=== PATIENT | female | born 1965 | race American Indian/Alaskan Native ===

== ENCOUNTER 2017-03-30 07:53 | Outpatient (CLI) | payer MEDICARE ==
--- NOTE | 2017-03-30 09:42 | Ultrasound Report ---
ULTRASOUND RENAL BILATERAL INDICATION: Chronic kidney disease, stage 3. COMPARISON: 03/01/2017. FINDINGS: Renal sonography again demonstrates mild increased renal cortical echogenicity. Grossly preserved contours. No hydronephrosis. RIGHT KIDNEY is 10 x 5.3 x 5.8 cm with cortical thickness of 2.2 cm. The larger interpolar 4 x 3.5 cm cyst is stable, image 18. Other smaller 2.5 x 1.9 cm cortical cyst superiorly, images 13-15 demonstrates a more prominent 1.1 x 0.9 cm intrinsic non-shadowing echogenicity, possibly fat or hemorrhage in the given setting. LEFT KIDNEY measures 8.9 x 5.1 x 5.4 cm with cortical thickness of 1.8 cm. Two adjacent interpolar cortical cysts laterally again seen on images 32-34, the larger 3.5 x 2.5 cm while the smaller is 2.2 x 1.7 cm. URINARY BLADDER suboptimally distended and assessed, though grossly unremarkable, in so far seen. CONCLUSION: Mild underlying medical renal disease and bilateral renal cysts again noted with slight interval sonographic variation in the right upper renal cortical cyst, as described. Thank you for the opportunity to participate in this patient's care.
== END 2017-03-30 07:54 | disposition home or self-care (01) ==
LOC: US 07:53
PROVIDERS: ATTEND Internal Medicine Nephrology
DX: I12.9 Hypertensive chronic kidney disease with stage 1 through stage 4 chronic kidney disease, or unspecified chronic kidney disease (principal); N18.3 Chronic kidney disease, stage 3 (moderate); N28.1 Cyst of kidney, acquired; N32.89 Other specified disorders of bladder
CPT/HCPCS: 76770

== ENCOUNTER 2017-04-09 09:06 | Emergency (ER) | payer MEDICARE ==
--- NOTE | 2017-04-09 10:14 | XRay Report ---
Single view chest: Compared to 02/28/17. History: Trauma/chest pain. Findings: Cardiomegaly. Trachea is midline. Stable [id number]. No consolidation or pleural effusion. Impression: No acute cardiopulmonary findings.
--- NOTE | 2017-04-09 10:18 | Cat Scan Report ---
CT HEAD WITHOUT CONTRAST INDICATION: Fall with left-sided weakness. COMPARISON: February 2017 neuroimaging. FINDINGS: Noncontrast head CT demonstrates stable, age-appropriate ventricles and sulci, including slight ex-vacuo dilatation of the left frontal horn secondary to approximately 1.8 cm left frontal lobe old infarct/encephalomalacia, axial image 41, series 2. Mild to moderate periventricular and white matter hypodense small vessel ischemic disease again noted as also few small scattered lacunar infarcts as in the basal ganglia. No acute infarct, hemorrhage, mass effect or midline shift. No abnormal extra axial fluid collections. Stable posterior fossa with preserved basilar cisterns. Approximately 2 cm peripheral left cerebellar hypodense, late subacute/chronic infarct now noted with stable 6 mm calcification superiorly, axial images 20-26. Normal eye globes. Clear imaged paranasal sinuses and mastoid air cells. Atherosclerotic ICA calcifications. Slight hyperostosis frontalis. Normal scalp. Few radiopaque dental material. CONCLUSION: 1. Expected interval evolution of now hypodense peripheral left cerebellar infarct, as detailed above. 2. No acute intracranial CT abnormality with stable age appropriate atrophy and microvascular changes/old infarctions, as described. If focal neurologic deficits or strong clinical suspicion for an acute infarction exist, additional assessment as with MRI may be considered, as appropriate. Thank you for the opportunity to participate in this patient's care.
--- NOTE | 2017-04-09 10:35 | Cat Scan Report ---
CT CERVICAL SPINE WITHOUT CONTRAST INDICATION: Trauma. COMPARISON: None similar. FINDINGS: Noncontrast axial, sagittal and coronal CT reconstructions through the cervical spine somewhat limited due to patient positioning/tilt, though demonstrates intact craniocervical articulation with normal dens, anterior and posterior arches of C1 and prevertebral soft tissues. Patent airway. No evidence of a jumped facet. Assessment of the spinal canal itself compromised from C5-C6 inferiorly due to artifact from shoulder soft tissues. Radiopaque dental materials create streak artifact. Normal imaged mastoid air cells and posterior fossa. Normal vertebral body stature, alignment and disc heights. Slight C6-C7 degenerative spurring. No large disc protrusion suspected at any level. Slight lower cervical facet arthropathy. Grossly normal thyroid. Left-sided dual lumen central catheter partially imaged. Clear visualized lung apices. CONCLUSION: No acute cervical spine CT abnormality on this limited exam with few incidental findings, as above. Thank you for the opportunity to participate in this patient's care.
[2017-04-09 10:39] LABS: Basophils % (Auto) 0.2 % (0.0-1.8); Eosinophils % (Auto) 1.5 % (0.0-4.3); Hematocrit 23.9 % (30.3-42.9); Hemoglobin 8.2 gm/dl (10.1-14.3); Mean Corpuscular HGB Conc 35 % (30-34); Mean Corpuscular Hemoglobin 35 pg (28-32); Mean Corpuscular Volume 101 fl (79-97); Platelet Count 479 K/mm3 (140-440); Red Blood Count 2.37 M/mm3 (3.65-5.03); White Blood Count 10.7 K/mm3 (4.5-11.0)
[2017-04-09 10:41] LABS: Red Cell Distribution Width 23.5 % (13.2-15.2)
[2017-04-09 10:49] LABS: INR 1.02 (0.87-1.13)
[2017-04-09 10:50] LABS: Partial Thromboplastin Time 34.5 Sec. (24.2-36.6)
[2017-04-09 11:00] LABS: Alanine Aminotransferase 6 units/L (7-56); Albumin 3.7 g/dL (3.9-5); Albumin/Globulin Ratio 0.8 %; Alkaline Phosphatase 68 units/L (35-129); Anion Gap 17 mmol/L; BUN/Creatinine Ratio 10; Blood Urea Nitrogen 9 mg/dL (7-17); Calcium 8.8 mg/dL (8.4-10.2); Carbon Dioxide 23 mmol/L (22-30); Chloride 105.3 mmol/L (98-107); Creatine Kinase 81 units/L (30-135); Glucose 93 mg/dL (65-100); Potassium 4.1 mmol/L (3.6-5.0); Sodium 141 mmol/L (137-145); Total Protein 8.2 g/dL (6.3-8.2)
--- NOTE | 2017-04-09 11:25 | XRay Report ---
Single view pelvis: History: Trauma. Pelvic pain. Findings: No lytic or blastic lesion. No fracture or dislocation. Impression: No evidence of acute fracture
[2017-04-09 11:32] LABS: Urine Drugs of Abuse Note Disclamer
[2017-04-09 11:48] LABS: Bilirubin,Urine NEG (Negative); Blood,Urine SM (Negative); Ketones,Urine NEG (Negative); Leukocyte Esterase,Urine NEG (Negative); Nitrite,Urine NEG (Negative); Urobilinogen,Urine < 2.0 mg/dL (<2.0)
--- NOTE | 2017-04-09 11:56 | Emergency Department Report ---
ED Fall HPI - General Chief Complaint: Altered Mental Status Stated Complaint: POSS CVA Time Seen by Provider: 04/09/17 09:19 Source: patient Mode of arrival: Stretcher Limitations: No Limitations - History of Present Illness Initial Comments: 51-year-old female with a past medical history CVA with visual left-sided weakness, hypertension, sickle cell disease, and renal insufficiency presents to the hospital status post fall. Family heard patient fall and was found at the bottom of the stairs. Patient states she ambulates with a walker at her baseline. She does not recall the fall incident. She denies any pain currently. She states she took her medications this morning. She is alert and oriented 3 and able to speak although not fluently. Previous medical records were reviewed. Patient was just admitted here March 03 acute CVA. Brain MRI showed subacute ischemia at 3 different areas as well as chronic infarcts. Patient also had worsening renal sufficiency that resolved prior to discharge. See previous medical record. Initially is reported that patient was nonverbal throughout EMS care and initially upon arrival to the ED. Patient was placed in C-spine precautions prior to arrival. - Related Data Home Medications Medication Instructions Recorded Confirmed Last Taken Coreg 12.5 mg PO DAILY 03/01/17 03/01/17 02/27/17 Hydroxyurea 1 PO DAILY 03/01/17 Unknown Lisinopril 40 mg PO DAILY 03/01/17 03/01/17 02/27/17 oxyCODONE ER [OxyCONTIN ER TAB] 40 mg PO Q12HR 03/01/17 03/01/17 Unknown oxyCODONE [Roxicodone TAB] 10 mg PO Q6HR PRN 03/01/17 03/01/17 Unknown Previous Rx's Medication Instructions Recorded Last Taken Type Aspirin 81 mg PO Q24H #30 tab.chew 03/04/17 Unknown Rx AtorvaSTATin [Lipitor] 40 mg PO QHS #30 tab 03/04/17 Unknown Rx Levofloxacin [Levaquin TAB] 250 mg PO Q48HR #5 tablet 03/04/17 Unknown Rx Allergies Allergy/AdvReac Type Severity Reaction Status Date / Time hydromorphone HCl Allergy Unknown Verified 02/28/17 14:46 [From Dilaudid] Penicillins Allergy Unknown Verified 02/28/17 14:46 ED Review of Systems ROS: Stated complaint: POSS CVA Other details as noted in HPI ED Past Medical Hx - Past Medical History Previous Medical History?: Yes Hx Hypertension: Yes Hx CVA: Yes (left sided weakness) Hx Renal Disease: Yes Hx Sickle Cell Disease: Yes - Surgical History Past Surgical History?: Yes Additional Surgical History: port left chest wall - Social History Smoking Status: Unknown if ever smoked - Medications Home Medications: Home Medications Medication Instructions Recorded Confirmed Last Taken Type Coreg 12.5 mg PO DAILY 03/01/17 03/01/17 02/27/17 History Hydroxyurea 1 PO DAILY 03/01/17 Unknown History Lisinopril 40 mg PO DAILY 03/01/17 03/01/17 02/27/17 History oxyCODONE ER [OxyCONTIN ER TAB] 40 mg PO Q12HR 03/01/17 03/01/17 Unknown History oxyCODONE [Roxicodone TAB] 10 mg PO Q6HR PRN 03/01/17 03/01/17 Unknown History Aspirin 81 mg PO Q24H #30 tab.chew 03/04/17 Unknown Rx AtorvaSTATin [Lipitor] 40 mg PO QHS #30 tab 03/04/17 Unknown Rx Levofloxacin [Levaquin TAB] 250 mg PO Q48HR #5 tablet 03/04/17 Unknown Rx ED Physical Exam - General Limitations: No Limitations - Other Other exam information: General: No limitations, patient is alert in no acute distress Head exam: Atraumatic, normocephalic Eyes exam: Normal appearance, pupils equal reactive to light, extraocular movements intact ENT: Moist mucous membrane, normal oropharynx Neck exam: Normal inspection, full range of motion, no meningismus nontender Respiratory exam: Clear to auscultation bilateral, no wheezes, rales, crackles Cardiovascular: Normal rate and rhythm, normal heart sounds Abdomen: Soft, nondistended, and nontender, with normal bowel sounds, no rebound, or guarding Extremity: Full range of motion normal inspection no deformity Back: Normal Inspection, full range of motion, no tenderness Neurologic: Alert, patient speaks but is intermittent and not fluent. left hand 4/5l handgrip on the left, left leg 2/5. Right upper and lower extremities 5/5 strength. Sensation intact grossly equal bilaterally. Psychiatric: normal affect, normal mood Skin: Warm, dry, intact ED Course Vital Signs 04/09/17 04/09/17 04/09/17 09:13 09:16 09:20 Pulse Rate 90 88 Respiratory 19 22 Rate Blood Pressure 209/90 177/148 200/102 O2 Sat by Pulse 100 Oximetry 04/09/17 04/09/17 04/09/17 09:24 09:25 09:30 Pulse Rate 88 89 88 Respiratory 18 18 14 Rate Blood Pressure 177/148 185/116 194/105 O2 Sat by Pulse 100 99 100 Oximetry 04/09/17 04/09/17 04/09/17 09:57 10:00 10:05 Pulse Rate 91 H 87 84 Respiratory 17 22 18 Rate Blood Pressure 194/105 190/98 190/98 O2 Sat by Pulse 100 98 Oximetry 04/09/17 04/09/17 04/09/17 10:10 10:15 10:20 Pulse Rate 79 87 88 Respiratory 18 16 17 Rate Blood Pressure 190/98 197/103 197/103 O2 Sat by Pulse 97 100 97 Oximetry 04/09/17 04/09/17 04/09/17 10:26 10:30 10:36 Pulse Rate 91 H 87 85 Respiratory 16 17 20 Rate Blood Pressure 197/103 170/129 170/129 O2 Sat by Pulse 100 98 98 Oximetry 04/09/17 04/09/17 04/09/17 10:40 10:46 10:50 Pulse Rate 96 H 93 H 96 H Respiratory 18 19 18 Rate Blood Pressure 170/129 171/142 171/142 O2 Sat by Pulse 97 100 100 Oximetry 04/09/17 04/09/17 04/09/17 10:56 11:00 11:06 Pulse Rate 97 H 95 H 102 H Respiratory 17 24 28 H Rate Blood Pressure 171/142 153/64 153/64 O2 Sat by Pulse 100 100 95 Oximetry 04/09/17 04/09/17 04/09/17 11:10 11:15 11:20 Pulse Rate Respiratory Rate Blood Pressure 153/64 163/72 163/72 O2 Sat by Pulse 99 92 99 Oximetry 04/09/17 04/09/17 04/09/17 11:26 11:30 11:36 Pulse Rate Respiratory Rate Blood Pressure 163/72 153/64 176/70 O2 Sat by Pulse 100 98 98 Oximetry 04/09/17 04/09/17 04/09/17 11:40 11:45 11:50 Pulse Rate Respiratory Rate Blood Pressure 176/70 181/90 181/90 O2 Sat by Pulse 99 98 100 Oximetry 04/09/17 04/09/17 04/09/17 11:56 12:00 12:06 Pulse Rate Respiratory Rate Blood Pressure 181/90 169/94 169/94 O2 Sat by Pulse 100 99 100 Oximetry 04/09/17 04/09/17 04/09/17 12:10 12:15 12:20 Pulse Rate Respiratory Rate Blood Pressure 169/94 183/99 183/99 O2 Sat by Pulse 100 100 99 Oximetry 04/09/17 04/09/17 04/09/17 12:26 12:30 12:36 Pulse Rate Respiratory Rate Blood Pressure 183/99 182/101 182/101 O2 Sat by Pulse 99 99 99 Oximetry 04/09/17 04/09/17 04/09/17 12:40 12:45 12:50 Pulse Rate Respiratory Rate Blood Pressure 182/101 174/98 174/98 O2 Sat by Pulse 99 100 68 L Oximetry 04/09/17 04/09/17 04/09/17 12:56 13:00 13:06 Pulse Rate 97 H 92 H Respiratory 21 18 Rate Blood Pressure 174/98 157/72 174/98 O2 Sat by Pulse 96 99 100 Oximetry 04/09/17 13:10 Pulse Rate 92 H Respiratory 19 Rate Blood Pressure 174/98 O2 Sat by Pulse 99 Oximetry ED Medical Decision Making - Lab Data Result diagrams: 04/09/17 10:11 04/09/17 10:11 Sodium 141, potassium 4.1, chloride 105.3, anion gap 17 Lab Results 04/09/17 04/09/17 04/09/17 Range/Units 10:11 10:11 10:11 WBC 10.7 (4.5-11.0) K/mm3 RBC 2.37 L (3.65-5.03) M/mm3 Hgb 8.2 L (10.1-14.3) gm/dl Hct 23.9 L (30.3-42.9) % MCV 101 H (79-97) fl MCH 35 H (28-32) pg MCHC 35 H (30-34) % RDW 23.5 H (13.2-15.2) % Plt Count 479 H (140-440) K/mm3 Lymph % (Auto) 10.9 L (13.4-35.0) % [place] % (Auto) 4.0 (0.0-7.3) % Eos % (Auto) 1.5 (0.0-4.3) % Baso % (Auto) 0.2 (0.0-1.8) % Lymph # 1.2 (1.2-5.4) K/mm3 [place] # 0.4 (0.0-0.8) K/mm3 Eos # 0.2 (0.0-0.4) K/mm3 Baso # 0.0 (0.0-0.1) K/mm3 Seg Neutrophils % 83.4 H (40.0-70.0) % Seg Neutrophils # 9.0 H (1.8-7.7) K/mm3 PT 13.9 (12.2-14.9) Sec. INR 1.02 (0.87-1.13) APTT 34.5 (24.2-36.6) Sec. Carbon Dioxide 23 (22-30) mmol/L BUN 9 (7-17) mg/dL Creatinine 0.9 (0.7-1.2) mg/dL Estimated GFR > 60 ml/min BUN/Creatinine Ratio 10 % Glucose 93 (65-100) mg/dL Calcium 8.8 (8.4-10.2) mg/dL Total Bilirubin 0.50 (0.1-1.2) mg/dL AST 12 (5-40) units/L ALT 6 L (7-56) units/L Alkaline Phosphatase 68 (35-129) units/L Total Creatine Kinase 81 (30-135) units/L Troponin T < 0.010 (0.00-0.029) ng/mL Total Protein 8.2 (6.3-8.2) g/dL Albumin 3.7 L (3.9-5) g/dL Albumin/Globulin Ratio 0.8 % Urine Color (Yellow) Urine Turbidity (Clear) Urine pH (5.0-7.0) Ur Specific [place] (1.003-1.030) Urine Protein (Negative) mg/dL Urine Glucose (UA) (Negative) mg/dL Urine Ketones (Negative) mg/dL Urine Blood (Negative) Urine Nitrite (Negative) Urine Bilirubin (Negative) Urine Urobilinogen (<2.0) mg/dL Ur Leukocyte Esterase (Negative) Urine WBC (Auto) (0.0-6.0) /HPF Urine RBC (Auto) (0.0-6.0) /HPF U Epithel Cells (Auto) (0-13.0) /HPF Urine Opiates Screen Urine Methadone Screen Ur Barbiturates Screen Ur Phencyclidine Scrn Ur Amphetamines Screen U Benzodiazepines Scrn Urine Cocaine Screen U Marijuana (THC) Screen Drugs of Abuse Note Plasma/Serum Alcohol (0-0.07) gm% 04/09/17 04/09/17 04/09/17 Range/Units 10:11 11:16 11:16 WBC (4.5-11.0) K/mm3 RBC (3.65-5.03) M/mm3 Hgb (10.1-14.3) gm/dl Hct (30.3-42.9) % MCV (79-97) fl MCH (28-32) pg MCHC (30-34) % RDW (13.2-15.2) % Plt Count (140-440) K/mm3 Lymph % (Auto) (13.4-35.0) % [place] % (Auto) (0.0-7.3) % Eos % (Auto) (0.0-4.3) % Baso % (Auto) (0.0-1.8) % Lymph # (1.2-5.4) K/mm3 [place] # (0.0-0.8) K/mm3 Eos # (0.0-0.4) K/mm3 Baso # (0.0-0.1) K/mm3 Seg Neutrophils % (40.0-70.0) % Seg Neutrophils # (1.8-7.7) K/mm3 PT (12.2-14.9) Sec. INR (0.87-1.13) APTT (24.2-36.6) Sec. Carbon Dioxide (22-30) mmol/L BUN (7-17) mg/dL Creatinine (0.7-1.2) mg/dL Estimated GFR ml/min BUN/Creatinine Ratio % Glucose (65-100) mg/dL Calcium (8.4-10.2) mg/dL Total Bilirubin (0.1-1.2) mg/dL AST (5-40) units/L ALT (7-56) units/L Alkaline Phosphatase (35-129) units/L Total Creatine Kinase (30-135) units/L Troponin T (0.00-0.029) ng/mL Total Protein (6.3-8.2) g/dL Albumin (3.9-5) g/dL Albumin/Globulin Ratio % Urine Color Yellow (Yellow) Urine Turbidity Clear (Clear) Urine pH 6.0 (5.0-7.0) Ur Specific [place] 1.009 (1.003-1.030) Urine Protein 30 mg/dl (Negative) mg/dL Urine Glucose (UA) Neg (Negative) mg/dL Urine Ketones Neg (Negative) mg/dL Urine Blood Sm (Negative) Urine Nitrite Neg (Negative) Urine Bilirubin Neg (Negative) Urine Urobilinogen < 2.0 (<2.0) mg/dL Ur Leukocyte Esterase Neg (Negative) Urine WBC (Auto) 1.0 (0.0-6.0) /HPF Urine RBC (Auto) 1.0 (0.0-6.0) /HPF U Epithel Cells (Auto) < 1.0 (0-13.0) /HPF Urine Opiates Screen Presumptive negative Urine Methadone Screen Presumptive negative Ur Barbiturates Screen Presumptive negative Ur Phencyclidine Scrn Presumptive negative Ur Amphetamines Screen Presumptive negative U Benzodiazepines Scrn Presumptive negative Urine Cocaine Screen Presumptive negative U Marijuana (THC) Screen Presumptive negative Drugs of Abuse Note Disclamer Plasma/Serum Alcohol < 0.01 (0-0.07) gm% - EKG Data -: EKG Interpreted by Me (sinus rhythm rate 90. Gait, no ST elevation or T- wave inversions) EKG shows normal: sinus rhythm, axis (QRS 63), QRS complexes (87), ST-T waves ( normal) Rate: normal - Radiology Data Radiology results: report reviewed Chest x-ray: No acute findings CT head: Expected interval evolution of now hypodense peripheral left cerebellar infarct. No acute findings CT cervical spine without contrast: No acute findings Pelvis x-ray: No acute fracture - Medical Decision Making Fall: No acute injury identified Previous CVA: No neural deficits reported. Patient passed swallowing screen in the ED Anemia: chronic and unchanged History of renal insufficiency: Improved Previous thrombocytopenia also improved UA neg for infection BP: meds banquet captain, bp trending downward, asymptomatic Plan d/c home. - Differential Diagnosis fall, UTI, fracture, contusion, sprain Critical Care Time: No Critical care attestation.: If time is entered above; I have spent that time in minutes in the direct care of this critically ill patient, excluding procedure time. ED Disposition Clinical Impression: Fall, History of cerebrovascular accident with residual effects Disposition: DC-01 TO HOME OR SELFCARE Is pt being admited?: No Does the pt Need Aspirin: No Condition: Stable Instructions: Fall Prevention for Older Adults (ED) Additional Instructions: Continue current medications. Continue to use your walker to ambulate. Return if symptoms worsen. Referrals: PRIMARY CARE [Primary Care Provider] - 3-5 Days Time of Disposition: 13:29
[2017-04-09 13:13] VITALS: BP 174/98
[2017-04-09] MEDS ORDERED: FLUSH HEPARIN IV ONE (14:53)
== END 2017-04-09 15:28 | disposition home or self-care (01) ==
LOC: ED 09:06
DX: I69.991 Dysphagia following unspecified cerebrovascular disease (principal); R53.1 Weakness; Z86.73 Personal history of transient ischemic attack (TIA), and cerebral infarction without residual deficits; I10 Essential (primary) hypertension; R41.82 Altered mental status, unspecified
CPT/HCPCS: 36415; 70450; 71010; 72125; 72170; 80053; 80307; 81001; 82550; 84484; 85025; 85610; 85730; 92610; 93005; 93010; 99285; G0480; G8996; G8997; G8998; J1642; 80320